=== PATIENT | female | born 1990 | race Caucasian/White ===

== ENCOUNTER 2018-02-11 11:49 | Inpatient (IN) | payer OTHER ==
[2015-09-10 11:53] VITALS: BMI 22.2
[2018-02-11] MEDS ORDERED: Lactated Ringer's 1,000 ML IV ONE (12:06)
[2018-02-11] MEDS ORDERED: Lactated Ringer's 1,000 ML IV SCH (12:15)
[2018-02-11] MEDS ORDERED: Sodium Citrate/Citric Acid 15 ml Sol ONE (12:27)
[2018-02-11] MEDS ORDERED: cefOXitin IV 2 gm in Saline 2 GM/50 ML BAG IVPB ONE (12:27)
[2018-02-11 12:28] LABS: BASO # 0.2 K/uL (0.0-0.2); EOS # 0.2 K/uL (0.0-0.7); HEMOGLOBIN 12.1 g/dL (11.0-16.0); LYMPH # 2.6 K/uL (1.0-4.3); LYMPH % 16.7 % (20.0-40.0); MEAN CELL VOLUME 91.8 fL (81.0-99.0); MEAN CORPUSCULAR HEMOGLOBIN 31.4 pg (27.0-31.0); MEAN CORPUSCULAR HGB CONC 34.2 g/dL (33.0-37.0); MEAN PLATELET VOLUME 9.5 fL (7.2-11.7); MONO # 0.7 K/uL (0.0-0.8); MONO % 4.7 % (0.0-10.0); NEUT # 11.8 K/uL (1.8-7.0); NEUT % 76.6 % (50.0-75.0); RBC 3.84 Mil/uL (3.80-5.20); RED CELL DISTRIBUTION WIDTH 13.3 % (11.5-14.5); WHITE BLOOD COUNT 15.4 K/uL (4.8-10.8)
[2018-02-11] MEDS ORDERED: Sodium Citrate/Citric Acid 15 ml Sol PO ONE (12:30)
[2018-02-11] MEDS ORDERED: Morphine 1 mg/ml preservative-free Inj(Duramorph) ONE (12:37)
[2018-02-11 12:39] LABS: ALB/GLOB RATIO 1.1 (1.0-2.1); ALBUMIN 3.6 g/dL (3.5-5.0); ALT/SGPT 18 U/L (9-52); AST/SGOT 21 U/L (14-36); BLOOD UREA NITROGEN 5 mg/dL (7-17); CALCIUM 9.2 mg/dl (8.6-10.4); GFR NON-AFRICAN AMERICAN > 60
[2018-02-11] MEDS ORDERED: Oxytocin 20 units in LR 2,000 ML IV ONE (12:49)
--- NOTE | 2018-02-11 12:49 | OBHP ---
Datetime: 02/11/2018 12:13 IP Adm Impression: Term, intrauterine ; Ruptured Membranes IP Adm Impression Other: Previous section IP Admit Plan: Admit to unit; Initiate Section protocol Admit Comment, IP Provider: 27 y.o. , LMP 05/09/17, revised JERRICA 02/25/18, EGA 38 weeks, by s linda 11/29/17 at 27w 3d, C/O leaking of fluid approx 1900 hours 02/10/18 - didn't present for evaluation because "I didn't know what it was". (+) Ctx 2100 hours 02/10/18, stronger 0730 hours, pain scale now 10/10. (+) FM; passed blood-tinged mucous plug 2100 hours. (+) cough x 1 week; productive of phlegm (mostly creamy-color). Denies sick contact, recent travel; ... "I was taking cough medicine all week; no other meds". Denies fever, chills, care: [facility]: noted for treatment, 01/2018, for syp hilis "I got 3 shots in my butt" P Ob: 2009, C/S, 38+wks, male, 5lb 15oz - "his heart rate was low;...I was being monitored and he flatlined". [facility]; no complications. VTOP x 2: 2008, 2012, each less than 12 weeks; wi th D_C; no complicaitons. Spont Ab x 2, 2006, 2013, each less than 6 weeks, no D_C P MALARIOLOGIST: 9 x monthly x 3-4. Denies any other STIs, No h/o myomata, abnormal Pap or ovarian cysts PMH: denies PSH: C/S; D_C x 2 NKDA Meds: PNV - last took 02/10/18 Soc Hx: (+) tobacco 1/2 pp (icreased in ) x 14 years; Stopped marijuana use 11/2017 (when I decided to kepp this ); denies any other illicit drug use. Denies EtOH us.e Lives with a m aternal aunt. FOB involved; wosadiq sheldon x 2 years. Unemmployed. Fam Hx: Mother alive 40+(unsure). Father alive - hx unk. (+) fam h/o DM. Grandparents siblings not ed for breast cancer; lymphoma P.E.: As above. petite, in pain with contraacitons. Awake, alert, oriented to time, person and brenton ce. Pleasant and cooperative. Accompanied by her aunt. Assessment: 27 y.o. [id number], 38 weeks, prev C/S, PROM, uterine contractions, declines TOLAC. Recent diagnosis of and treatment for syphilis. GBS (+). Category 1 tracing. R/B/C of repeat C/S discussed; no questions offered. Consents signed, dated, witnessed and placed in chart. Patient last ate 2029 ho urs 02/10/18. Patient is clinically stable. Plan: 1) Admit 2) NPO 3) IVFs 4) Admission labs 5) continuous EFM 6) Carballo 7) Abdominal prep and shave 8) Mefoxin, ironing worker to O.R. 9) Notify anesthesiologist 10) Notify peds 11) scallop binder to O.R. Pelvic Type - PN: Adequate Extremities - PN: Normal Abdomen - PN: Normal Back - PN: Normal Breast - PN: Not Done Lungs - PN: Normal Heart - PN: Normal Thyroid - PN: Not Done Neurologic - PN: Normal HEENT - PN: Normal General - PN: Normal Presentation-Admit: Vertex FHR - Baseline A Provider: 145 Amniotic Fluid Color, Provider: Clear Membranes, Provider: Ruptured Contraction Comments Provider: 8 minutes Comments, ACOG Physical Exam: Abdomen: Gravid. Firm with contractions. Fundal height 35cm Perineum: wet Speculum: (+) pooling; (+) nitrazine All other systems reviewed and are negative Gestation - Est Wks by US: 38.0 Pool Provider: Positive Nitrazine Provider: Positive IP Hx Assessment: The History has been Reviewed and is WNL Vital Signs Provider: Reviewed IP Indication for Induction: Not Applicable IP Chief Complaint: Uterine contractions; Suspected ruptured membranes NICHD Accel Fetus A IP Provider: 15X15 FHR Category Provider Fetus A: Category I NICHD Decel Fetus A IP Provider: None Dilatation, Provider: 2-3 Effacement, Provider: 90 Station, Provider: -1 Genitourinary Exam: Normal DTRs - PN: Normal
[2018-02-11] MEDS: cefOXitin IV 2 gm in Dextrose 2 GM/50 ML BAG IVPB SCH ×2 (13:00→21:07)
--- NOTE | 2018-02-11 13:14 | OBPN ---
Datetime: 02/11/2018 13:07 IP Progress Note Comment: record noted for (+) UDS 11/2017: notation made to contact DYFS Plan: 1) canvas worker consultaiton - anticipate possible DYFS notification Datetime: 02/11/2018 12:13 Pool Provider: Positive Nitrazine Provider: Positive Membranes, Provider: Ruptured Amniotic Fluid Color, Provider: Clear Contraction Comments Provider: 8 minutes FHR - Baseline A Provider: 145 Gestation - Est Wks by US: 38.0 Presentation-Admit: Vertex Vital Signs Provider: Reviewed NICHD Accel Fetus A IP Provider: 15X15 FHR Category Provider Fetus A: Category I Dilatation, Provider: 2-3 Effacement, Provider: 90 Station, Provider: -1 NICHD Decel Fetus A IP Provider: None
[2018-02-11] MEDS ORDERED: Oxytocin 10 Units/ml Inj ONE (13:18)
[2018-02-11 13:38] LABS: SQUAMOUS EPITHIAL 1 /hpf (0-5); URINE BILIRUBIN NEGATIVE (NEGATIVE); URINE BLOOD NEGATIVE (NEGATIVE); URINE CLARITY Clear (Clear); URINE COLOR Yellow (YELLOW); URINE GLUCOSE (UA) NORMAL (Normal); URINE LEUKOCYTE ESTERASE NEG Leu/uL (Negative); URINE PROTEIN NEGATIVE (NEGATIVE); URINE UROBILINOGEN NORMAL mg/dL (0.2-1.0)
[2018-02-11 14:00] LABS: BARBITURATES, UR NEGATIVE (NEGATIVE); BENZODIAZEPINES, UR NEGATIVE (NEGATIVE); OPIATES, UR NEGATIVE (NEGATIVE); PHENCYCLIDINE, UR NEGATIVE (NEGATIVE)
--- NOTE | 2018-02-11 16:05 | PCM.SURG1 ---
Surgeon's Initial Post Op Note - Surgeon's Notes Surgeon: Emelia Jiang MD Napper Grinder: Paddy Blanco MD Type of Anesthesia: Spinal Anesthesia Administered By: Umair Brown DO Pre-Operative Diagnosis: 38 weeks, Rupture of membranes, Previous section, Uterine contractions, Insufficient care, GBS (+), recently treated syphilis Operative Findings: Live female , BECKY position, Apgars 9/9, weight 6lb 7oz; cord pH 7.02. Mild band of adhesion right lower anterior uterus to abdominal wall. Normal uterus; normal ovaries and fallopian tubes, bilaterally Post-Operative Diagnosis: same Operation Performed: Repeat LTCS; lysis of adhesions Specimen/Specimens Removed: Placenta Estimated Blood Loss: EBL {In ML}: 500 (U.O. 600 mL, clear; IVFs 2,000 ml LR with 20 Units pitocin) Blood Products Given: N/A Drains Used: No Drains Post-Op Condition: Good Date of Surgery/Procedure: 02/11/18 Time of Surgery/Procedure: 15:35
[2018-02-11 16:32] LABS: RAPID PLASMA REAGIN REACTIVE (NONREACTIVE)
[2018-02-11] MEDS ORDERED: DiphenhydrAMINE 50 mg/ml Inj IVP PRN (17:11)
[2018-02-11] MEDS: HYDROmorphone 0.5 mg/0.5 ml ISec IVP PRN ×2 (18:37→23:32)
--- NOTE | 2018-02-11 19:47 | OBDS ---
DELIVERY PERSONNEL Delivery Doctor: Errol Jiang MD Scrub Nurse: Heaven Coates OBT Needle Loom Tender: Camelia Myers RN Anesthesiologist: girma MATERNAL INFORMATION Delivery Anesthesia: Spinal Medications in Delivery: pitocin 30 units Estimated Blood Loss (ml): 500 Placenta Cultured: No Maternal Complications: Other Other Maternal Complications: treated for pos. RPR 01/2018. Postive GBS RN Comments: uneventful delivery via repeat with living baby girl at 1349 pm. placenta se nt to lab Provider Comments: Uncomplicated repeat LTCS with atraumatic delivery of live female infant, BECKY pos ition, weight 6lb 7oz, 's 9/9, terminal meconium noted. Lysis of adnesion performed - right anterolateral aspect of uterus to abdominal wall. Infant and mother tolrated procedure well; both in stable condition LABOR SUMMARY EDC: 02/21/2018 00:00 No. Babies in Womb: 1 Attempted: No Labor Anesthesia: None LABOR INFORMATION Reason for Induction: Not Applicable Onset of Labor: 02/11/2018 07:30 Other Ripening Agents: n/a Oxytocin: N/A Group B Beta Strep: Positive Antibiotics # of Doses: 1 Antibiotics Time of Last Dose: 1300 Steroids Given: None Reason Steroids Not Administered: Not Applicable MEMBRANES Membranes Rupture Method: Spontaneous Rupture of Membranes: 02/10/2018 19:00 Length of Rupture (hrs): 18.82 Amniotic Fluid Color: Clear Amniotic Fluid Amount: Moderate Amniotic Fluid Odor: Normal STAGES OF LABOR Stage 3 hrs: 0 Stage 3 min: 2 Total Time in Labor hrs: 6 Total Time in Labor min: 21 CSECTION DELIVERY Primary Indication: Repeat Elective Secondary Indication: Repeat Elective CSection Urgency: Non Elective CSection Incidence: Repeat Labor: Labor Elective: Elective CSection Incision: Lower Uterine Transverse BABY A INFORMATION Infant Delivery Date/Time: 02/11/2018 13:49 Method of Delivery: Born in Route : No : N/A Forceps: N/A Vacuum Extraction: N/A Shoulder Dystocia : No SHOULDER DYSTOCIA BABY A Infant Delivery Date/Time: 02/11/2018 13:49 PRESENTATION/POSITION BABY A Presentation: Cephalic Cephalic Presentation: Vertex Vertex Position: Left Occipital Anterior Breech Presentation: N/A PLACENTA INFORMATION BABY A Placenta Delivery Time : 02/11/2018 13:51 Placenta Method of Delivery: Manual Removal Placenta Status: Delivered SCORES BABY A Heart Rate 1 min: >100 bpm Resp Effort 1 min: Good Cry Reflex Irritability 1 min: Cough or Sneeze or Pulls Away Muscle Tone 1 min: Active Motion Color 1 min: Body [place], Extremities Blue SCORE 1 MIN: 9 Heart Rate 5 min: >100 bpm Resp Effort 5 min: Good Cry Reflex Irritability 5 min: Cough or Sneeze or Pulls Away Muscle Tone 5 min: Active Motion Color 5 min: Body [place], Extremities Blue SCORE 5 MIN: 9 INFORMATION BABY A Gestational Age at Delivery: 38.4 Gestational Status: Infant Outcome : Liveborn Infant Condition : Stable Sex: Female IDENTIFICATION/MEDS BABY A ID Band Number: [id number] ID Band Location: Left Leg; Left Arm Sensor Applied: Yes Sensor Number: [id number] Sensor Location : Cord Clamp WEIGHT/LENGTH BABY A Birthweight (gms): 2935 Weight (lb): 6 Weight (oz): 7 Infant Length Inches: 18.25 Length cms: 46.4 CORD INFORMATION BABY A No. Cord Vessels: 3 Nuchal Cord : N/A Nuchal Cord Other: 0 True Knot: 0 Cord pH Baby Venous: 7.00 (Annotations: Data stored by N on behalf of user) Cord Blood Taken: Yes Infant Suction: None
[2018-02-12] MEDS: cefOXitin IV 2 gm in Dextrose 2 GM/50 ML BAG IVPB SCH (05:15)
[2018-02-12] MEDS: HYDROmorphone 0.5 mg/0.5 ml ISec IVP PRN (05:23)
--- NOTE | 2018-02-12 06:30 | OP ---
PROCEDURE DATE: 02/11/2018 SURGEON: Emelia Jiang MD AUXILIARY POWERPLANT OPERATOR: Paddy Blanco MD ANESTHESIOLOGIST: Umair Brown DO TYPE OF ANESTHESIA: Spinal. PREOPERATIVE DIAGNOSES: 38 weeks' gestation. Previous Caesarean section, rupture of membranes, uterine contractions. Insufficient care. GBS positive. Recently treated syphilis. POSTOPERATIVE DIAGNOSIS: 38 weeks' gestation. Previous Caesarean section, rupture of membranes, uterine contractions. Insufficient care. GBS positive. Recently treated syphilis. Pelvic adhesions. OPERATIVE FINDINGS: Live female infant from the left occipital anterior position, 's were 9 and 9 at one and five minutes respectively. Weight 6 pounds 7 ounces. Cord pH was 7.02 with a base excess of -15. There is a mild band of adhesion on the lower right anterior lateral aspect of the uterus to the abdominal wall. Normal uterus and normal ovaries and fallopian tubes, bilaterally. OPERATION PERFORMED: Repeat transverse lower uterine segment Caesarean section and lysis of adhesion. SPECIMENS: Placenta. ESTIMATED BLOOD LOSS: 500 ml. URINE OUTPUT: 600 mL of clear urine. IV FLUIDS : 2000 mL of lactated Ringer's with 20 units of Pitocin. BLOOD PRODUCTS GIVEN: None. DRAINS USED: None. COMPLICATIONS: None. DESCRIPTION OF PROCEDURE: The patient was taken to the operating room after having obtained informed consent for the anticipated procedure. This included a discussion of possible risks and complications, including but not limited to infection requiring antibiotics, hemorrhage requiring blood transfusion, repair of any damage to internal organs, possible Caesarean hysterectomy. The patient expressed understanding, and no questions were offered. Consent forms were signed dated, witnessed, and placed in the chart. The patient received Mefoxin 2 grams prior to being transferred to the operating room, and a Carballo indwelling catheter was inserted under sterile condition. Once in the operating room, she was placed on the operating room table in the sitting position, and spinal anesthesia was administered without incident. She was immediately repositioned into supine manner, and the abdomen was prepped and she was subsequently draped in usual sterile fashion. After assuring an adequate level of anesthesia, using the scalpel, a Pfannenstiel incision was made through the previous scar. The incision was carried down through the subcutaneous tissue to the level of the fascia. The fascia was identified. It was nicked in the midline, and the incision was extended bilaterally using the Bovie electrocautery. The rectus muscle was then dissected off the overlying fascia. Using the scalpel, the rectus muscle was in the midline, and the abdominal cavity was entered by a sharp dissection. Palpation of the intra-abdominal cavities revealed the band of adhesion as described above. Lysis of adhesion was performed using the Bovie electrocautery. The vesicouterine reflection was identified, and the bladder flap was created. A transverse incision was then made on the lower uterine segment. Upon entering the endometrial cavity, moderate amount of clear amniotic fluid was retrieved. Atraumatic delivery of the infant with the findings as above then ensued. Once on the operative field, the 's mouth and nose were bulb suctioned. The umbilical cord was doubly clamped and cut, and the was handed off the operative field to the ships equipment engineer in attendance. A segment of the umbilical cord was requested for cord pH analysis. The results are as above. Using manual extraction, the placenta was extracted. It was grossly intact with three vessels present in the cord. The uterus was then exteriorized for closure. This was done in two layers using 0 Vicryl; the first layer was in a running interlocking fashion and the second layer was in a horizontal imbricating fashion. Additional [id number] stitches were placed using 2-0 Monocryl to assure complete hemostasis on the uterus. Attention was then directed to the posterior aspect of the uterus with the findings of the pelvic viscera as described above. Copious irrigation was performed. A layer of Surgicel was then placed along the uterine incision, and the bladder flap was re-approximated using 2-0 chromic in a running fashion. The uterus was returned to the abdominal cavity, and the paracolic gutters were cleared of all debris. Interceed was then placed along the anterior aspect of the uterus. The parietal peritoneum was then re-approximated using 2-0 chromic in a running fashion. The muscle was re-approximated in midline also using 2-0 chromic in a running fashion. The fascia was re-approximated using 0 Vicryl in a running fashion, and the skin was re-approximated using 4-0 Monocryl in subcuticular manner. Steri-Strips were applied, and a pressure dressing was applied. The patient was re-positioned in a frog-leg manner. Bimanual exploration was performed, and the uterus was evacuated of all additional blood and clots. It was contracted and firm, approximately 1 fingerbreadth below the umbilicus. The patient was transferred to the recovery room in stable condition. The had been transferred to the well-baby nursery also in stable condition. Dr. Paddy Blanco was present throughout the entire procedure from beginning to the end. His presence and expertise are necessary for: 1. The adequate visualization of the operative field at all times. 2. The safe and atraumatic delivery of the . 3. Assuring adequate hemostasis throughout. Emelia Juvenal Jiang MD MTDOdalis
[2018-02-12 08:09] LABS: HEMOGLOBIN 10.5 g/dL (11.0-16.0); MEAN CELL VOLUME 92.2 fL (81.0-99.0); MEAN CORPUSCULAR HEMOGLOBIN 31.6 pg (27.0-31.0); MEAN CORPUSCULAR HGB CONC 34.3 g/dL (33.0-37.0); MEAN PLATELET VOLUME 9.5 fL (7.2-11.7); RBC 3.31 Mil/uL (3.80-5.20); RED CELL DISTRIBUTION WIDTH 13.5 % (11.5-14.5)
[2018-02-12] MEDS: Prenatal Multivit/Folic Acid/Iron Tab PO SCH (09:50)
[2018-02-12] MEDS: Simethicone 80 mg Chewtab PO SCH ×4 (09:50→21:05)
--- NOTE | 2018-02-12 10:47 | OBPPN ---
Datetime: 02/12/2018 10:32 PP Pain Prov: Within normal limits PP Nausea Prov: Denies PP Flatus Prov: No PP BM Prov: No PP Breasts Prov: Normal PP Heart Prov: Normal PP Lungs Prov: Normal PP Abdomen/Uterus Prov: Normal PP Lochia Prov: Normal PP Vulva/Perineum Prov: Normal PP CVA Tenderness Prov: Normal PP Extremities Prov: Normal PP C/S Incision Prov: Normal PP Progress Prov: Not Applicable PP Comments Phys Exam Prov: Abdomen: Soft. (+)BS. Non distended. Dressing remains dry and clean Extremities: no calf tenderness All other systems reviewed and are negative PP Progress Note Prov: Notified by ROlga 0550 hours incison bleeding from left side. Patient received in bed room 459; awake,alert, oriented and responding to questions. Vital signs r eviewed at that tiime were wnl Incsion was inspsected: steri stsrips were removed and approximately 20 cc of serosanguineoius flu id expressed. Hemosstais assured. steri strips reapplied; pressure dressing reapplied. At approximately 0745 hours reassess patient: at that time, reports no nausea, vomiting (ate McDon ald's last night contrary to oders for clear liquid diet only). (-) flatus; (-) BM. Ambulating and vo iding without difficulty P.E.: as above. Thin in NAD. Awake, alert, oriented to time, person and place - WBC 15.0 H/H 10.5/30.6, Rh (+). Assessment: POD#1, 27 y.o. P2, S/P repeat C/S with BECKY. Incisional bleed as above - stable at thi s. Slowly returning GI function. Normal function. Acute blood loss anemia - wnl for repeat surgery . Patietn encouraged to ambulate. Plan: 1) As above. 2) Ambulate 3) CBC in AM 4) routine post op care Vital Signs Provider PP: Reviewed; Within Normal Limits
[2018-02-12] MEDS: Oxycodone/Acetaminophen 5/325 mg Tab PO PRN ×2 (11:44→17:01)
[2018-02-13] MEDS: Oxycodone/Acetaminophen 5/325 mg Tab PO PRN ×4 (02:45→19:05)
[2018-02-13 07:52] LABS: BASO # 0.1 K/uL (0.0-0.2); BASO % 0.8 % (0.0-2.0); EOS # 0.1 K/uL (0.0-0.7); EOS % 0.8 % (0.0-4.0); HEMOGLOBIN 10.3 g/dL (11.0-16.0); LYMPH # 3.1 K/uL (1.0-4.3); LYMPH % 20.8 % (20.0-40.0); MEAN CELL VOLUME 92.6 fL (81.0-99.0); MEAN CORPUSCULAR HGB CONC 33.5 g/dL (33.0-37.0); MEAN PLATELET VOLUME 9.2 fL (7.2-11.7); MONO # 0.8 K/uL (0.0-0.8); MONO % 5.1 % (0.0-10.0); NEUT # 10.9 K/uL (1.8-7.0); NEUT % 72.5 % (50.0-75.0); RBC 3.32 Mil/uL (3.80-5.20); RED CELL DISTRIBUTION WIDTH 13.4 % (11.5-14.5)
[2018-02-13] MEDS: Prenatal Multivit/Folic Acid/Iron Tab PO SCH (09:00)
[2018-02-13] MEDS: Simethicone 80 mg Chewtab PO SCH ×4 (09:00→21:23)
--- NOTE | 2018-02-13 10:58 | OBPPN ---
Datetime: 02/13/2018 10:20 PP Pain Prov: Within normal limits PP Nausea Prov: Present PP Flatus Prov: Yes PP BM Prov: No PP Breasts Prov: Not Done PP Heart Prov: Normal PP Lungs Prov: Normal PP Abdomen/Uterus Prov: Normal PP Lochia Prov: Normal PP Vulva/Perineum Prov: Not Done PP CVA Tenderness Prov: Normal PP Extremities Prov: Normal PP C/S Incision Prov: Abnormal PP Progress Prov: Not Applicable PP Comments Phys Exam Prov: Abdomen: (+)BS. Non distended. Fundus firm, mobile, minmally tender - g eneralized. Incision: 1 cm opening at left corner of incision. Approximate 5cc drainage of serosanguineous flu id. No foul odor. Overlying skin - no erythema, no warmth, no induration. Wound probed with cotton-ti pped swab - fascia intact; tracked approximateluy 2 cm toward midline. Cleaned with 50:50 NS:peroxide ; and packed with 2x2 gauge soaked in same. Patient tolerated procedure well. Extremities: no calf tenderness All other systems reviewed and are negative PP Impression Other Prov: Wound separation PP Progress Note Prov: Patient seen on two occasions: approximately 0800 hours and 0935 hours; recei james in bed room 459. Denies nausea, vomiting, dizziness and lightheadedness. Ambulating and voiding without difficulty. Bottlefeeding. Reports incisional and lower abdominal pain, pain scale 7/10 - rel ieved with pain meds (last dose percocet approximately 0915 hours) P.E.: as above. Thin in NAD. Awake, alert, oriented to time person and place. Pleasant and coopera tive - WBC 15; H/H 10. Assessment: POD#2, 27 y.o. P2, S/P repeat LTCS; now with small wound separation - most likely seco ndary due seroma. Wound care performed as above. WBC noted; no left shift. Patient remains afebrile; vital signs are stable. Returning GI and functions. demurrage worker note read and appreciated - DYF S to follow up in hospital prior to discharge home. Lastly, newly diagnosed and treated syphilis (01/14 018): RPR titre on admission noted - unchanged from antepartum value and prior to treatment. This is wnl as testing on admission is too soon after treatment. FTA-ABS result is pending. Spoke with lab: r esults should be available in approximately 4 days from date of specimen retrieval. Patient is clinically stable. Plan: 1) Start iron supplementation - BID 2) Sart zinc p.o. BID 3) General Surgery consultation -Dr. Katz; for recommendations re: optimal wound care 4) Continue post op care 5) CBC in AM 6) POssible discharge home 02/14/18 IP PP Procedures Comments: Wound care Vital Signs Provider PP: Reviewed; Within Normal Limits
--- NOTE | 2018-02-13 20:50 | OBPPN ---
Datetime: 02/13/2018 20:43 PP Pain Prov: Within normal limits PP Progress Note Prov: Patient seen approximately 2020 hours: per patient, was seen by Dr. Katz. "He changed the dressing, removed what you put in and told me tomorrow when I go home and take a angel wer to take it out. He wants to see me Monday". Patient without any significant complaints. Abdomen: Soft. Non distended. Pressure dressing in place, and intact. Clean and dry. Assessment: 27 y.o. P2, POD#2, S/P repeat C/S with BECKY - wound seroma. Patient is clinically stabl e. S/P evaluation by general surgeon: awaiting consultaiton report. Patient is clincally stable. Plan: 1) Anticipate discharge home 02/14/18
[2018-02-14] MEDS: Oxycodone/Acetaminophen 5/325 mg Tab PO PRN ×3 (01:12→10:05)
[2018-02-14 08:10] LABS: BASO % 0.2 % (0.0-2.0); EOS # 0.1 K/uL (0.0-0.7); HEMOGLOBIN 10.2 g/dL (11.0-16.0); LYMPH % 22.5 % (20.0-40.0); MEAN CELL VOLUME 92.7 fL (81.0-99.0); MEAN CORPUSCULAR HEMOGLOBIN 31.5 pg (27.0-31.0); MEAN PLATELET VOLUME 9.2 fL (7.2-11.7); MONO # 0.8 K/uL (0.0-0.8); MONO % 6.1 % (0.0-10.0); NEUT # 9.4 K/uL (1.8-7.0); NEUT % 70.2 % (50.0-75.0); RBC 3.24 Mil/uL (3.80-5.20); RED CELL DISTRIBUTION WIDTH 13.8 % (11.5-14.5); WHITE BLOOD COUNT 13.4 K/uL (4.8-10.8)
--- NOTE | 2018-02-14 09:36 | OBDCSUM ---
Datetime: 02/14/2018 08:01 Discharged to, Provider: Home Follow up at, Provider: Dr. Katz, clinic Disch Instr Activity: Normal activity Disch Instr Diet: Regular Discharge Instructions, Provider: Specific instructions as noted Discharge Diagnosis, Provider: Term Delivered Discharge Time: 02/14/2018 11:00 Follow up in weeks, Provider: 1 week Discharge Instruct Comment, Prov: F/u with Dr. Katz in office on 02/16 and office on 02/19. Contraception discussed, Prov: Yes Disch Activity Restrictions: No exercising; No lifting; Minimize stair-climbing; No sexual activity; Nothing in vagina - [place], tampons, douche Discharge Comment, Provider: no sex motrin /percocet bacrium bid f/u in clinic monda Contraception after Delivery: Control Pill/Patch
--- NOTE | 2018-02-14 09:36 | OBPPN ---
Datetime: 02/14/2018 09:32 PP Pain Prov: Within normal limits PP Nausea Prov: Denies PP Flatus Prov: Yes PP Comments Phys Exam Prov: left side wound open /packed PP Progress Note Prov: POD#3 Left incision opening packing changed with 2x2 and covered with 4x4. No serosanguineous drainage n oted. Currently bottle feeding only. Counseled to increase water intake. Patient is planning to start contraceptive pills, and agreed to discuss plan at follow up visit ne xt week. As per social work manager note, river transportation worker Tomasa from [facility] requested to be called prior to discharge. Follow up with Dr. Katz in office on Monday02/16/18. Follow up in clinic on Monday02/19/18. Continue vitamins for 4-6 months. Continue iron and zinc to promote wound healing. Perscription provided for Motrin, Percocet for pain as needed. Prescription for Bactrim DS twice a day for 7 days. Vital Signs Provider PP: Reviewed; Within Normal Limits Datetime: 02/13/2018 20:43 PP BM Prov: Yes
[2018-02-14] MEDS: Simethicone 80 mg Chewtab PO SCH (10:04)
[2018-02-14] MEDS: Prenatal Multivit/Folic Acid/Iron Tab PO SCH (10:04)
[2018-02-14] MEDS ORDERED: Influenza Vaccine 60 MCG/0.5 ML SYR (3 yr & up) IM ONE (12:30)
[2018-02-14 20:25] VITALS: BP 117/84; PULSE 94; RESP 18; TEMP 97.1; O2SAT 99
== END 2018-02-14 13:00 | disposition home or self-care (01) | DRG 540 ==
LOC: C.EROB 11:49 → C.4D 12:12 → C.4M 17:17
PROVIDERS: ADMIT Obstetrics & Gynecology; ATTEND Obstetrics & Gynecology
PROC: 10D00Z1 Extraction of Products of Conception, Low, Open Approach (ICD-10-PCS; principal; 2018-02-11)
DX: O34.211 Maternal care for low transverse scar from previous cesarean delivery (principal); O98.12 Syphilis complicating childbirth; O99.324 Drug use complicating childbirth; O99.824 Streptococcus B carrier state complicating childbirth; Z3A.38 38 weeks gestation of pregnancy; O99.334 Smoking (tobacco) complicating childbirth; F17.210 Nicotine dependence, cigarettes, uncomplicated; F12.90 Cannabis use, unspecified, uncomplicated; N73.6 Female pelvic peritoneal adhesions (postinfective); Z37.0 Single live birth